=== PATIENT | female | born 1960 | race Hispanic/Latino ===

== ENCOUNTER → 2024-09-25 | Day surgery (SDC) | payer MEDICARE ==
[2024-09-19 16:14] LABS: BASOPHILS % 0.5 % (0.0-1.0); EOSINOPHILS # (AUTO) 0.1 (0.0-0.4); EOSINOPHILS % 1.3 % (0.0-6.0); HEMATOCRIT 39.4 % (34.2-44.1); HEMOGLOBIN 12.2 g/dL (12.0-16.0); LYMPHOCYTES # (AUTO) 2.9 (1.0-3.2); LYMPHOCYTES % 34.2 % (18.0-39.1); MEAN CORPUSCULAR VOLUME 83.8 fL (81-99); MONOCYTES # (AUTO) 0.5 (0.2-0.8); NEUTROPHILS # (AUTO) 4.9 (2.1-6.9); NEUTROPHILS % 57.6 % (38.7-80.0); PLATELET COUNT 272 x10e3/uL (140-360); WHITE BLOOD COUNT 8.43 x10e3/uL (4.8-10.8)
[~2024-09-25] MED LIST: B-121000 MC2; BIOTIN1 MG; CALTRATE 600 +1 EAC1; LOSARTAN POTASS25 MG PO; METFORMIN HCL500 MG PO; PRENATAL 19 TA1 EAC2; TERBINAFINE HC250 MG PO; ZYRTEC10 M3
[2024-09-25] MEDS: LACTATED RINGER'S 1,000 ML ONE (08:34)
[2024-09-25 11:37] VITALS: TEMP 97.8
[2024-09-25 11:50] VITALS: BP 130/87; PULSE 85; RESP 16; O2SAT 100
== END | disposition home or self-care (01) ==
LOC: OR 07:24
PROVIDERS: ATTEND Internal Medicine Gastroenterology
DX: Z12.11 Encounter for screening for malignant neoplasm of colon (principal); K63.5 Polyp of colon; K57.30 Diverticulosis of large intestine without perforation or abscess without bleeding; K64.8 Other hemorrhoids; Z71.3 Dietary counseling and surveillance; E11.9 Type 2 diabetes mellitus without complications; I10 Essential (primary) hypertension; Z78.9 Other specified health status; E66.01 Morbid (severe) obesity due to excess calories; Z88.2 Allergy status to sulfonamides; Z01.812 Encounter for preprocedural laboratory examination; Z79.84 Long term (current) use of oral hypoglycemic drugs; Z79.899 Other long term (current) drug therapy; Z68.41 Body mass index [BMI] 40.0-44.9, adult; Z86.19 Personal history of other infectious and parasitic diseases; Z80.0 Family history of malignant neoplasm of digestive organs
CPT/HCPCS: 36415 ×2; 45380; 45385; 82948; 85025; 88305; 93005; J7121